=== PATIENT | male | born 1945 | race Caucasian/White ===

== ENCOUNTER → 2017-09-05 | Outpatient (CLI) | payer MEDICARE | END | disposition home or self-care (01) | LOC: PCVCCLINIC 12:56 | DX: I48.92 Unspecified atrial flutter (principal); I25.10 Atherosclerotic heart disease of native coronary artery without angina pectoris; I10 Essential (primary) hypertension; E78.00 Pure hypercholesterolemia, unspecified; R94.31 Abnormal electrocardiogram [ECG] [EKG]; Z79.899 Other long term (current) drug therapy; Z79.82 Long term (current) use of aspirin; Z87.891 Personal history of nicotine dependence | CPT/HCPCS: 80061; 93005; G0463 ==

== ENCOUNTER → 2017-09-07 | Outpatient (CLI) | payer MEDICARE | END | disposition home or self-care (01) | LOC: PCVCIMAG 15:20 | DX: I08.3 Combined rheumatic disorders of mitral, aortic and tricuspid valves (principal); I25.10 Atherosclerotic heart disease of native coronary artery without angina pectoris; I48.92 Unspecified atrial flutter; I42.9 Cardiomyopathy, unspecified; R94.31 Abnormal electrocardiogram [ECG] [EKG]; E78.00 Pure hypercholesterolemia, unspecified; Z87.891 Personal history of nicotine dependence; Z79.899 Other long term (current) drug therapy; Z79.82 Long term (current) use of aspirin | CPT/HCPCS: 93005; 93306; G0463 ==

== ENCOUNTER → 2017-09-12 | Outpatient (CLI) | payer MEDICARE ==
[~2017-09-12] MED LIST: BENZOCAINE ONE 20% MUCOSAL SPRAY.; IV NORMAL SALINE 500ML BAG 500 ML; MIDAZOLAM HCL/PF 2 MG/2 ML VIAL.; fentaNYL PF VIAL 100 MCG/2 ML VIAL
== END | disposition home or self-care (01) ==
LOC: PCVCIMAG 09:01
DX: I08.0 Rheumatic disorders of both mitral and aortic valves (principal); I48.92 Unspecified atrial flutter; I25.10 Atherosclerotic heart disease of native coronary artery without angina pectoris; I42.9 Cardiomyopathy, unspecified
CPT/HCPCS: 93312; 93325; J2250; J3010; J7040

== ENCOUNTER → 2018-02-05 | Outpatient (CLI) | payer MEDICARE ==
[~2018-02-05] MED LIST changes: -BENZOCAINE ONE 20% MUCOSAL SPRAY.; +DIAZEPAM 10 MG TABLET.; +HEPARIN SODIUM 5,000 UNIT/ML VIAL for PCVC.; +IODIXANOL 270 MG/ML 100 ML VIAL.; +LIDOCAINE 1% PF 30 ML VIAL.
== END | disposition home or self-care (01) ==
LOC: PCVCINTER 11:25
DX: I87.1 Compression of vein (principal); Z95.0 Presence of cardiac pacemaker
CPT/HCPCS: 36012; 36907; 37248; 75820; 76937; C1725; C1769; C1894; C2623; J1644; J2250; J3010; J7040

== ENCOUNTER → 2018-04-02 | Outpatient (CLI) | payer MEDICARE ==
--- NOTE | 2018-04-02 13:57 | PCVCIMAG ---
APPROVED REPORT Study performed: 04/02/2018 12:54:23 EXAM: Comprehensive 2D, Doppler, and color-flow Echocardiogram Patient Location: Echo lab Status: routine BSA: 1.83 HR: 60 bpmBP: 136/60 mmHg Rhythm: NSR Other Information Study Quality: Adequate Indications Aortic Valve Disease Pacemaker Cardiomyopathy 2D Dimensions IVSd: 10.55 (7-11mm)LVOT Diam: 21.00 (18-24mm) LVDd: 45.56 mm PWd: 11.31 (7-11mm)Ascending Ao: 38.02 (22-36mm) LVDs: 30.59 (25-40mm) Aortic Root: 35.31 mm LV Single Plane 4CH: 51.41 % LV Single Plane 2CH: 52.96 % Biplane EF: 52.5 % Volumes Left Atrial Volume (Systole) Single Plane 4CH: 42.10 mLSingle Plane 2CH: 44.70 mL LA ESV Index: 25.00 mL/m2 Aortic Valve AoV Peak Deepak.: 3.04 m/s AO Peak Gr.: 37.02 mmHgLVOT Max P.60 mmHg AO Mean Gr.: 19.54 mmHgLVOT Mean P.99 mmHg AO V2 Mean: 2.06 m/sLVOT Max V: 1.10 m/s AO V2 VTI: 63.91 cmLVOT Mean V: 0.82 m/s EDMUND (VTI): 1.38 [id number] V1 VTI: 25.96 cm EDMUND Vmax: 1.22 cm2 AI Vmax: 4.64 m/sSV (LVOT): 87.96 mL AI [place]: 2.63 m/s2 AI PHT: 518.39 ms Mitral Valve E/A Ratio: 0.8 MV Decel. Time: 246.05 ms MV E Max Deepak.: 0.47 m/s MV A Deepak.: 0.61 m/s IVRT: 83.04 ms TDI E/Lateral E': 5.88E/Medial E': 5.88 Medial E' Deepak.: 0.08 m/s Lateral E' Deepak.: 0.08 m/s Pulmonary Valve PV Peak Deepak.: 1.18 m/sPV Peak Gr.: 5.52 mmHg Pulmonary Vein P Vein S: 0.49 m/sP Vein A: 0.21 m/s P Vein D: 0.40 m/sP Vein A Dur.: 100.3 msec P Vein S/D Ratio: 1.23 Tricuspid Valve TR Peak Deepak.: 2.56 m/sRAP Estimate: 7.00 mmHg TR Peak Gr.: 26.12 mmHg PA Pressure: 33.00 mmHg Left Ventricle The left ventricle is normal size. There is normal LV segmental wall motion. Borderline concentric left ventricular hypertrophy. Left ventricular systolic function is normal. The left ventricular ejection fraction is within the normal range. LVEF is 50-55%. Grade I - abnormal relaxation pattern. Right Ventricle The right ventricle is normal size. The right ventricular systolic function is normal. Pacemaker lead is present in the right ventricle. Atria The left atrium size is normal. The right atrium size is normal. Aortic Valve Moderate aortic valve calcifiation. Moderate aortic regurgitation. Moderate aortic stenosis. The peak aortic valve gradient is 37 mmHg and the mean gradient is 20 mmHg. The aortic valve area is 1.3 cm2. Mitral Valve There is mild mitral annular calcification. Trace mitral regurgitation. No evidence of mitral valve stenosis. Tricuspid Valve The tricuspid valve is normal in structure. Mild tricuspid regurgitation. Pulmonary artery pressure is 33 mmHg. Pulmonic Valve The pulmonary valve is normal in structure. There is no pulmonic valvular regurgitation. Great Vessels The aortic root is normal in size. IVC is normal in size and collapses >50% with inspiration. Pericardium There is no pericardial effusion. <Conclusion> The left ventricle is normal size. Left ventricular systolic function is normal. Grade I - abnormal relaxation pattern. The right ventricle is normal size. The left atrium size is normal. Moderate aortic stenosis. There is mild mitral annular calcification. Trace mitral regurgitation. Mild tricuspid regurgitation. Pulmonary artery pressure is 33 mmHg.
== END | disposition home or self-care (01) ==
LOC: PCVCIMAG 13:00
PROVIDERS: ATTEND Internal Medicine Cardiovascular Disease
DX: I08.2 Rheumatic disorders of both aortic and tricuspid valves (principal); I48.3 Typical atrial flutter; I25.10 Atherosclerotic heart disease of native coronary artery without angina pectoris; I10 Essential (primary) hypertension; I42.9 Cardiomyopathy, unspecified; I49.5 Sick sinus syndrome; Z87.891 Personal history of nicotine dependence
CPT/HCPCS: 93005; 93306; G0463

== ENCOUNTER → 2018-05-08 | Outpatient (CLI) | payer MEDICARE | END | disposition home or self-care (01) | LOC: PCVCCLINIC 10:57 | PROVIDERS: ATTEND Nuclear Medicine Nuclear Cardiology | DX: I87.1 Compression of vein (principal); I48.3 Typical atrial flutter; I25.10 Atherosclerotic heart disease of native coronary artery without angina pectoris; I35.0 Nonrheumatic aortic (valve) stenosis; E78.5 Hyperlipidemia, unspecified; I73.9 Peripheral vascular disease, unspecified; M10.9 Gout, unspecified; E78.00 Pure hypercholesterolemia, unspecified; I49.5 Sick sinus syndrome; Z87.891 Personal history of nicotine dependence; Z72.89 Other problems related to lifestyle | CPT/HCPCS: G0463 ==

== ENCOUNTER → 2018-05-30 | Outpatient (CLI) | payer MEDICARE ==
--- NOTE | 2018-05-30 13:46 | PCVCIMAG ---
EXAM: NONINVASIVE ARTERIAL EXAMINATION OF BOTH LOWER EXTREMITIES INCLUDING PRE AND POST EXERCISE PRESSURE MEASUREMENTS AND DOPPLER WAVEFORMS INDICATION: Peripheral Arterial Disease. Leg pain. FINDINGS: Right Brachial: 136 mm Hg. Right Dorsalis Pedis: 88 mm Hg. Right Posterior Tibial: 97 mm Hg. Right MANUEL = 0.71. Left Brachial: 134 mm Hg. Left Dorsalis Pedis: 93 mm Hg. Left Posterior Tibial: 110 mm Hg. Left MANUEL = 0.81. Post Exercise: Right Brachial 134 mm Hg. Right Posterior Tibial: 63 mm Hg. Left Posterior Tibial: 82 mm Hg. Right MANUEL = 0.47. Left MANUEL = 0.61. IMPRESSION: Mild resting ischemia in the right lower extremity. Moderate exercise induced ischemia in the right lower extremity. Mild resting ischemia in the left lower extremity. Moderate exercise induced ischemia in the left lower extremity. LOC:[id number]
--- NOTE | 2018-05-30 13:53 | PCVCIMAG ---
EXAM: BILATERAL LOWER EXTREMITY ARTERIAL DUPLEX INDICATION: Peripheral Arterial Disease. Leg pain. FINDINGS: Right Leg: Common femoral and profunda femoral arteries are patent. Complete occlusion throughout the superficial femoral artery with refilling of the distal vessel. Popliteal artery is patent. Anterior tibial, peroneal, and posterior tibial arteries are patent. Left Leg: Mild stenosis distal common femoral artery. Profunda femoral artery is patent. Occlusion of the superficial femoral artery and upper popliteal artery. Mid and distal popliteal artery patent. The anterior tibial, peroneal, and posterior tibial arteries are patent. IMPRESSION: Occlusion throughout the right superficial femoral artery as detailed above. Occlusion throughout the left superficial femoral artery and upper left popliteal artery. LOC:[id number] [id number]
== END | disposition home or self-care (01) ==
LOC: PCVCIMAG 09:47
PROVIDERS: ATTEND Internal Medicine Cardiovascular Disease
DX: I73.9 Peripheral vascular disease, unspecified (principal); R09.89 Other specified symptoms and signs involving the circulatory and respiratory systems; R29.898 Other symptoms and signs involving the musculoskeletal system; E78.5 Hyperlipidemia, unspecified; I87.1 Compression of vein; I25.10 Atherosclerotic heart disease of native coronary artery without angina pectoris; I35.0 Nonrheumatic aortic (valve) stenosis; I48.3 Typical atrial flutter; M10.9 Gout, unspecified; E78.00 Pure hypercholesterolemia, unspecified; I48.92 Unspecified atrial flutter; Z87.891 Personal history of nicotine dependence
CPT/HCPCS: 36415; 93924; 93925; G0463

== ENCOUNTER → 2018-09-11 | Outpatient (CLI) | payer MEDICARE ==
--- NOTE | 2018-09-11 10:55 | PCVCIMAG ---
EXAM: NONINVASIVE ARTERIAL EXAMINATION OF BOTH LOWER EXTREMITIES INCLUDING PRE AND POST EXERCISE PRESSURE MEASUREMENTS AND DOPPLER WAVEFORMS INDICATION: Peripheral Arterial Disease. Leg pain. FINDINGS: Right Brachial: 141 mm Hg. Right Dorsalis Pedis: 155 mm Hg. Right Posterior Tibial: 148 mm Hg. Right MANUEL = 1.08. Left Brachial: 143 mm Hg. Left Dorsalis Pedis: 101 mm Hg. Left Posterior Tibial: 108 mm Hg. Left MANUEL = 0.76. Post Exercise: Left Brachial 139 mm Hg. Right Dorsalis Pedis: 129 mm Hg. Left Posterior Tibial: 105 mm Hg. Right MANUEL = 0.93. Left MANUEL = 0.76. IMPRESSION: No resting ischemia in the right lower extremity. No exercise induced ischemia in the right lower extremity. Mild resting ischemia in the left lower extremity. Mild exercise induced ischemia in the left lower extremity. LOC:[id number]
--- NOTE | 2018-09-11 10:57 | PCVCIMAG ---
EXAM: AORTOILIAC DUPLEX INDICATION: Peripheral arterial disease FINDINGS: AORTA: Suprarenal aorta measures maximum diameter of 2.6 cm. There is not a fusiform infrarenal aortic aneurysm. The infrarenal aorta measures maximum diameter of 1.9 cm. No aortic stenosis. RIGHT COMMON ILIAC ARTERY: Maximum diameter is 1.0 cm. No significant stenosis. RIGHT EXTERNAL ILIAC ARTERY: No significant stenosis. LEFT COMMON ILIAC ARTERY: Maximum diameter is 0.9 cm. No significant stenosis. LEFT EXTERNAL ILIAC ARTERY: No significant stenosis. IMPRESSION: No abdominal aortic aneurysm. No aortoiliac stenosis seen. Prior bilateral iliac artery stents maintaining satisfactory patency. LOC:[id number]
--- NOTE | 2018-09-11 10:58 | PCVCIMAG ---
EXAM: RIGHT LOWER EXTREMITY ARTERIAL DUPLEX INDICATION: Peripheral Arterial Disease. Leg pain. FINDINGS: Right Leg: Satisfactory arterial waveforms throughout the common/profunda/superficial femoral, popliteal, anterior tibial, peroneal, and posterior tibial arteries. No flow limiting stenosis seen. Previous right superficial femoral artery stent maintaining satisfactory patency. IMPRESSION: No flow limiting stenosis in the right lower extremity. Previous right superficial femoral artery stent maintaining satisfactory patency. LOC:[id number]
== END | disposition home or self-care (01) ==
LOC: PCVCIMAG 09:02
PROVIDERS: ATTEND Nuclear Medicine Nuclear Cardiology
DX: I73.9 Peripheral vascular disease, unspecified (principal)
CPT/HCPCS: 93924; 93926; 93978

== ENCOUNTER → 2018-09-17 | Outpatient (CLI) | payer MEDICARE | END | disposition home or self-care (01) | LOC: PCVCCLINIC 10:34 | PROVIDERS: ATTEND Nuclear Medicine Nuclear Cardiology | DX: I25.10 Atherosclerotic heart disease of native coronary artery without angina pectoris (principal); I48.92 Unspecified atrial flutter; I35.0 Nonrheumatic aortic (valve) stenosis; I42.8 Other cardiomyopathies; I87.1 Compression of vein; I73.9 Peripheral vascular disease, unspecified; I49.5 Sick sinus syndrome; E78.5 Hyperlipidemia, unspecified; Z95.0 Presence of cardiac pacemaker; Z87.891 Personal history of nicotine dependence | CPT/HCPCS: 93005; G0463 ==

== ENCOUNTER → 2019-03-31 | Outpatient (CLI) | payer MEDICARE ==
--- NOTE | 2019-03-31 14:51 | PCVCIMAG ---
EXAM: BILATERAL CAROTID DUPLEX INDICATION: Carotid Occlusive Disease. FINDINGS: Doppler Measurements (centimeters per second): RIGHT: Peak CCA-78, Peak ECA-144, Diastolic ICA-66, Peak ICA-384, ICA/CCA Ratio-4.9. LEFT: Peak CCA-79, Peak ECA-145, Diastolic ICA-14, Peak ICA-109, ICA/CCA Ratio-1.4. RIGHT CAROTID: The carotid bulb has severe plaque. The proximal internal carotid artery shows 90% stenosis. The common carotid artery shows no significant stenosis. The external carotid artery shows 40% stenosis. LEFT CAROTID: The carotid bulb has moderate plaque. The proximal internal carotid artery shows <40% stenosis. The common carotid artery shows no significant stenosis. The external carotid artery shows 40% stenosis. Antegrade flow in both vertebral arteries. IMPRESSION: 90% stenosis of the right internal carotid artery with severe plaque. <40% stenosis of the left internal carotid artery with moderate plaque. LOC:[place] [id number]
--- NOTE | 2019-03-31 14:58 | PCVCIMAG ---
EXAM: NONINVASIVE ARTERIAL EXAMINATION OF BOTH LOWER EXTREMITIES INCLUDING PRE AND POST EXERCISE PRESSURE MEASUREMENTS AND DOPPLER WAVEFORMS INDICATION: Peripheral Arterial Disease. Leg pain. FINDINGS: Right Brachial: 143 mm Hg. Right Dorsalis Pedis: 124 mm Hg. Right Posterior Tibial: 129 mm Hg. Right MANUEL = 0.90. Left Brachial: 133 mm Hg. Left Dorsalis Pedis: 94 mm Hg. Left Posterior Tibial: 114 mm Hg. Left MANUEL = 0.80. Post Exercise: Right Brachial 143 mm Hg. Right Posterior Tibial: 83 mm Hg. Left Posterior Tibial: 50 mm Hg. Right MANUEL = 0.58. Left MANUEL = 0.35. IMPRESSION: No resting ischemia in the right lower extremity. Moderate exercise induced ischemia in the right lower extremity. Mild resting ischemia in the left lower extremity. Moderately severe exercise induced ischemia in the left lower extremity. LOC:[id number]
--- NOTE | 2019-03-31 16:44 | PCVCIMAG ---
EXAM: RIGHT LOWER EXTREMITY ARTERIAL DUPLEX INDICATION: Peripheral Arterial Disease. Leg pain. FINDINGS: Right Leg: Common femoral and profunda femoral arteries are patent. 40-50% restenosis mid superficial femoral artery in the mid/distal portion of prior stent. Popliteal artery is patent. The anterior tibial, peroneal, and posterior tibial arteries are patent. IMPRESSION: 40-50% restenosis mid right superficial femoral artery within prior stent has developed since August 2018 study. LOC:[id number]
== END | disposition home or self-care (01) ==
LOC: PCVCIMAG 12:27
PROVIDERS: ATTEND Nuclear Medicine Nuclear Cardiology
DX: I65.23 Occlusion and stenosis of bilateral carotid arteries (principal)
CPT/HCPCS: 93880; 93924; 93926

== ENCOUNTER → 2019-06-04 | Outpatient (CLI) | payer MEDICARE ==
--- NOTE | 2019-06-04 11:56 | PCVCIMAG ---
APPROVED REPORT Study performed: 06/04/2019 10:34:04 EXAM: Comprehensive 2D, Doppler, and color-flow Echocardiogram Patient Location: Echo lab Status: routine BSA: 1.80 HR: 60 bpmBP: 148/50 mmHg Rhythm: Pacemaker Other Information Study Quality: Adequate Indications Pacemaker CAD Aortic stenosis, hx atrial flutter 2D Dimensions IVSd: 12.15 (7-11mm)LVOT Diam: 21.22 (18-24mm) LVDd: 45.66 mm PWd: 11.58 (7-11mm)Ascending Ao: 32.10 (22-36mm) LVDs: 32.66 (25-40mm) Left Atrium: 37.20 (27-40mm) Aortic Root: 32.97 mm LV Single Plane 4CH: 65.08 % LV Single Plane 2CH: 60.81 % Biplane EF: 64.6 % Volumes Left Atrial Volume (Systole) Single Plane 4CH: 61.23 mLSingle Plane 2CH: 65.41 mL LA ESV Index: 35.00 mL/m2 Aortic Valve AoV Peak Deepak.: 3.48 m/s AO Peak Gr.: 48.41 mmHgLVOT Max P.37 mmHg AO Mean Gr.: 25.00 mmHgLVOT Mean P.12 mmHg AO V2 Mean: 2.38 m/sLVOT Max V: 1.83 m/s AO V2 VTI: 75.70 cmLVOT Mean V: 1.25 m/s EDMUND (VTI): 1.86 [id number] V1 VTI: 39.86 cm EDMUND Vmax: 1.86 cm2 AI Vmax: 4.82 m/sSV (LVOT): 140.89 mL AI [place]: 3.47 m/s2 AI PHT: 403.12 ms Mitral Valve E/A Ratio: 1.3 MV Decel. Time: 240.71 ms MV E Max Deepak.: 0.73 m/s MV A Deepak.: 0.55 m/s IVRT: 89.97 ms Pulmonary Valve PV Peak Deepak.: 1.36 m/sPV Peak Gr.: 7.43 mmHg Pulmonary Vein P Vein S: 0.30 m/sP Vein A: 0.32 m/s P Vein D: 0.52 m/sP Vein A Dur.: 141.9 msec P Vein S/D Ratio: 0.58 Tricuspid Valve TR Peak Deepak.: 2.83 m/s TR Peak Gr.: 32.08 mmHg Left Ventricle The left ventricle is normal size. There is normal LV segmental wall motion. Mild concentric left ventricular hypertrophy. The left ventricular systolic function is normal. The left ventricular ejection fraction is within the normal range. LVEF is 60-65%. Grade II - pseudonormal filling dynamics. Right Ventricle The right ventricle is normal size. The right ventricular systolic function is normal. Pacemaker lead is present in the right ventricle. Atria Left atrium is mildly dilated. The right atrium size is normal. Pacemaker lead is present in the right atrium. Aortic Valve The aortic valve is moderately calcified. Mild to moderate aortic regurgitation. There is mild to moderate valvular aortic stenosis. Mildly increased LVOT deepak- 2.0 m/s with peak gradient of 16 mmHg. Calculated aortic valve area is 1.9 cm2 with maximum pressure gradient of 48 mmHg and mean pressure gradient of 25 mmHg. Mitral Valve The mitral valve is normal in structure. Mild mitral regurgitation. No evidence of mitral valve stenosis. Tricuspid Valve The tricuspid valve is normal in structure. Mild tricuspid regurgitation with PAP of 39 mmHg. Pulmonic Valve The pulmonary valve is normal in structure. There is no pulmonic valvular regurgitation. Great Vessels The aortic root is normal in size. IVC is normal in size and collapses >50% with inspiration. Pericardium There is no pericardial effusion. There is no pleural effusion. <Conclusion> The left ventricle is normal size. Mild concentric left ventricular hypertrophy. The left ventricular systolic function is normal. The right ventricle is normal size. Pacemaker lead is present in the right ventricle. Left atrium is mildly dilated. There is mild to moderate valvular aortic stenosis. Mildly increased LVOT deepak- 2.0 m/s with peak gradient of 16 mmHg. Mild to moderate aortic regurgitation. Mild mitral regurgitation. Mild tricuspid regurgitation with PAP of 39 mmHg.
== END | disposition home or self-care (01) ==
LOC: PCVCIMAG 10:59
PROVIDERS: ATTEND Internal Medicine Cardiovascular Disease
DX: I08.3 Combined rheumatic disorders of mitral, aortic and tricuspid valves (principal); I48.92 Unspecified atrial flutter; I42.8 Other cardiomyopathies; I45.10 Unspecified right bundle-branch block; I25.10 Atherosclerotic heart disease of native coronary artery without angina pectoris; E78.00 Pure hypercholesterolemia, unspecified; E78.5 Hyperlipidemia, unspecified; I11.9 Hypertensive heart disease without heart failure; Z79.899 Other long term (current) drug therapy; Z95.5 Presence of coronary angioplasty implant and graft; Z87.891 Personal history of nicotine dependence
CPT/HCPCS: 93005; 93306; G0463